=== PATIENT | male | born 1985 | race Caucasian/White ===

== ENCOUNTER 2017-02-06 03:10 | Emergency (ER) | payer SELFPAY ==
[2017-02-06] MEDS ORDERED: Ondansetron INJ* 2 MG/ML VIAL IV ONE (03:21)
[2017-02-06] MEDS ORDERED: NS 0.9% 1000 ML* 1,000 ML IV ONE (03:21)
[2017-02-06] MEDS ORDERED: Ketorolac INJ* 30 MG/ML 1 ML VIAL IV ONE (03:21)
[2017-02-06 05:57] VITALS: BP 106/80
--- NOTE | 2017-02-21 20:51 | ED ---
Rl Gimenez Matthew, scribed for Davian Galeana MD on 02/06/17 at 0333 . Headache - HPI Summary HPI Summary: A 31 y/o male presents to the ED with a migraine since 3 hours ago. The pain is rated 10/10 in severity. The patient states that he attempted to go back to sleep, but was unable to sleep from the pain. He has a Hx of migraines and normally takes acetaminophen for relief; however, his medication was "in the car , so he couldn't take any." - History Of Current Complaint Stated Complaint: SEVER MIGRAINE Hx Obtained From: Patient Onset/Duration: Sudden Onset, Started hours ago, Still Present Initially Headache Was: Initial Pain Scale(0-10)= - 10 Currently Pain Is: Current Pain Scale(0-10)= - 10 Timing: Constant Character: Migraine Associated Signs And Symptoms: Negative - Allergies/Home Medications Allergies/Adverse Reactions: Allergies Allergy/AdvReac Type Severity Reaction Status Date / Time Penicillins Allergy Intermediate Swelling Verified 02/06/17 03:19 Aspirin AdvReac Intermediate See Comment Verified 02/06/17 03:19 Home Medications: Home Medications NK [No Home Medications Reported] 02/06/17 [History Confirmed 02/06/17] PMH/Surg Hx/FS Hx/Imm Hx Endocrine/Hematology History: Denies: Hx Diabetes, Hx Thyroid Disease Cardiovascular History: Denies: Hx Hypertension, Hx Pacemaker/ICD Respiratory History: Reports: Hx Asthma Denies: Hx Chronic Obstructive Pulmonary Disease (COPD) GI History: Denies: Hx Ulcer Sensory History: Denies: Hx Hearing Aid Psychiatric History: Denies: Hx Panic Disorder - Surgical History Surgery Procedure, Year, and Place: APPENDECTOMY, RIGHT ARM, BILATERAL KNEES, HERNIA REPAIR Infectious Disease History: Denies: Hx Hepatitis, Hx Human Immunodeficiency Virus (HIV), Traveled Outside the [place] in Last 30 Days - Family History Known Family History: Positive: Cardiac Disease, Diabetes - Social History Alcohol Use: None Hx Substance Use: No Substance Use Type: Reports: None Hx Tobacco Use: Yes Smoking Status (MU): Heavy Every Day Tobacco Smoker Amount Used/How Often: ~1/2 ppd Review of Systems Constitutional: Negative Eyes: Negative ENT: Negative Cardiovascular: Negative Respiratory: Negative Gastrointestinal: Negative Genitourinary: Negative Musculoskeletal: Negative Skin: Negative Positive: Headache Psychological: Normal All Other Systems Reviewed And Are Negative: Yes Physical Exam Triage Information Reviewed: Yes Vital Signs On Initial Exam: Initial Vitals Temp Pulse Resp BP Pulse Ox 99.5 F 86 18 108/81 98 02/06/17 03:23 02/06/17 03:23 02/06/17 03:23 02/06/17 03:23 02/06/17 03:23 Vital Signs Reviewed: Yes Appearance: Positive: Well-Appearing, No Pain Distress Skin: Positive: Warm Head/Face: Positive: Normal Head/Face Inspection Eyes: Positive: EOMI, OFELIA, Conjunctiva Clear ENT: Positive: Hearing grossly normal Neck: Positive: Supple, Nontender Respiratory/Lung Sounds: Positive: Clear to Auscultation, Breath Sounds Present Cardiovascular: Positive: RRR Abdomen Description: Positive: Nontender, Soft Musculoskeletal: Positive: Strength/ROM Intact Neurological: Positive: Sensory/Motor Intact, Alert, Oriented to Person Place, Time, CN Intact II-III, Normal Gait Psychiatric: Positive: Anxious Diagnostics - Vital Signs Vital Signs Temp Pulse Resp BP Pulse Ox 02/06/17 05:56 98 F 84 18 106/80 02/06/17 03:23 99.5 F 86 18 108/81 98 - Laboratory Lab Statement: Any lab studies that have been ordered have been reviewed, and results considered in the medical decision making process. Re-Evaluation - Re-Evaluation First Eval Change: Improved Headache Course/Dx - Course Assessment/Plan: A 31 y/o male presents to the ED with a migraine since 3 hours ago. The pain is rated 10/10 in severity. The patient states that he attempted to go back to sleep, but was unable to sleep from the pain. He has a Hx of migraines and normally takes acetaminophen for relief; however, his medication was "in the car, so he couldn't take any." In the ED course, the patient was given IV fluids, Toradol, and Zofran. The patient did well in the ED and will be discharged home with PCP follow-up. - Diagnoses Provider Diagnoses: Migraine Discharge - Discharge Plan Condition: Stable Disposition: HOME Patient Education Materials: Migraine Headache (ED) Referrals: Missael Gunter MD [Primary Care Provider] - Additional Instructions: Please follow-up with your primary care physician in 2 days. The documentation as recorded by the Rl cota Matthew accurately reflects the service I personally performed and the decisions made by me, Davian Galeana MD.
== END 2017-02-06 05:56 | disposition home or self-care (01) ==
LOC: ED 03:10
DX: G43.909 Migraine, unspecified, not intractable, without status migrainosus (principal); F17.210 Nicotine dependence, cigarettes, uncomplicated; Z88.0 Allergy status to penicillin; Z88.6 Allergy status to analgesic agent
CPT/HCPCS: 96360; 96374; 96375; 99282; J1885; J2405

== ENCOUNTER 2017-06-14 19:53 | Emergency (ER) | payer SELFPAY ==
[2017-06-14] MEDS ORDERED: Ketorolac INJ* 30 MG/ML 1 ML VIAL IV PUSH ONE (21:58)
--- NOTE | 2017-06-14 22:52 | ED ---
Arthur Gimenez Rebecca, scribed for Davian Galeana MD on 06/14/17 at 2158 . HPI Chest Pain - HPI Summary HPI Summary: Pt is a 32 y/o M who presents to ED c/o CP and back pain. Sx began yesterday at 1400 as back pain. Upon waking up at 1130 this morning, pain was in the chest and "wrapped around" to the back. 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 Pain is characterized as sharp and severe, currently ranked 9/10. Sx aggravated by deep breaths, laying down and movement. Treated pain with one dose of Tylenol at 1130 this morning. Pt is concerned about a rib fx. - History of Current Complaint Chief Complaint: EDChestPainROMI Time Seen by Provider: 06/14/17 21:50 Hx Obtained From: Patient Onset/Duration: Still Present Time of Onset: 11:30 - Woke up with pain in the chest, back pain at 1400 yesterday Current Severity: Severe Pain Intensity: 9 Pain Scale Used: 0-10 Numeric Chest Pain Radiates: Yes Chest Pain Radiates To:: Back Character: Sharp/Stabbing Aggravating Factor(s): Movement, Deep Breaths, Other: - Laying down Alleviating Factor(s): Nothing Associated Signs and Symptoms: Positive: Back Pain - Allergy/Home Medications Allergies/Adverse Reactions: Allergies Allergy/AdvReac Type Severity Reaction Status Date / Time Penicillins Allergy Intermediate Swelling Verified 06/14/17 21:23 Aspirin AdvReac Intermediate See Comment Verified 06/14/17 21:23 PMH/Surg Hx/FS Hx/Imm Hx Endocrine/Hematology History: Denies: Hx Diabetes, Hx Thyroid Disease Cardiovascular History: Denies: Hx Hypertension, Hx Pacemaker/ICD Respiratory History: Reports: Hx Asthma Denies: Hx Chronic Obstructive Pulmonary Disease (COPD) GI History: Denies: Hx Ulcer Sensory History: Denies: Hx Hearing Aid Psychiatric History: Denies: Hx Panic Disorder - Surgical History Surgery Procedure, Year, and Place: APPENDECTOMY, RIGHT ARM, BILATERAL KNEES, HERNIA REPAIR - Immunization History Date of Tetanus Vaccine: unk Date of Influenza Vaccine: none Infectious Disease History: No Infectious Disease History: Denies: Hx Hepatitis, Hx Human Immunodeficiency Virus (HIV), Traveled Outside the [place] in Last 30 Days - Family History Known Family History: Positive: Cardiac Disease, Diabetes - Social History Alcohol Use: Rare Hx Substance Use: No Substance Use Type: Reports: None Hx Tobacco Use: Yes Smoking Status (MU): Heavy Every Day Tobacco Smoker Amount Used/How Often: ~1/2 ppd Review of Systems Positive: Chest Pain Positive: Arthralgia - Back pain All Other Systems Reviewed And Are Negative: Yes Physical Exam Triage Information Reviewed: Yes Vital Signs On Initial Exam: Initial Vitals Temp Pulse Resp BP Pulse Ox 98.9 F 77 20 122/86 100 06/14/17 19:58 06/14/17 19:58 06/14/17 19:58 06/14/17 19:58 06/14/17 19:58 Vital Signs Reviewed: Yes Appearance: Positive: Well-Appearing, Pain Distress - mild Skin: Positive: Warm Head/Face: Positive: Normal Head/Face Inspection Eyes: Positive: OFELIA ENT: Positive: Hearing grossly normal Neck: Positive: Supple Respiratory/Lung Sounds: Positive: Clear to Auscultation, Breath Sounds Present Cardiovascular: Positive: RRR. Negative: Murmur Abdomen Description: Positive: Nontender, Soft Bowel Sounds: Positive: Present Musculoskeletal: Positive: Strength/ROM Intact Neurological: Positive: Alert, Oriented to Person Place, Time Psychiatric: Positive: Affect/Mood Appropriate - [place] Coma Scale Coma Scale Total: 15 Diagnostics - Vital Signs Vital Signs Temp Pulse Resp BP Pulse Ox 06/14/17 21:19 99.1 F 60 12 114/75 98 06/14/17 21:06 99.2 F 67 18 108/75 99 06/14/17 19:58 98.9 F 77 20 122/86 100 - Laboratory Result Diagrams: 06/14/17 22:51 06/14/17 22:51 Lab Statement: Any lab studies that have been ordered have been reviewed, and results considered in the medical decision making process. - Radiology CXR w/ Ribs Xray Interpretation: No Acute Changes Radiology Interpretation Completed By: ED Physician Re-Evaluation - Re-Evaluation First Eval Change: Improved Chest Pain Course/Dx - Course Assessment/Plan: Pt is a 32 y/o M who presents to ED c/o CP and back pain. Sx began yesterday at 1400 as back pain. Upon waking up at 1130 this morning, pain was in the chest and "wrapped around" to the back. 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 Pain is characterized as sharp and severe, currently ranked 9/10. Sx aggravated by deep breaths, laying down and movement. Treated pain with one dose of Tylenol at 1130 this morning. Pt is concerned about rib fx. CXR w/ ribs is negative, as read by ED physician. Troponin of 0.00. In the ED course, the pt was given Toradol. Pt will be D/C to home with Dx of pleurisy with an Rx for Naproxen and a follow up with his PCP. He understands and agrees. Elevated BP noted and advised to f/u with PCP. - Diagnoses Provider Diagnoses: Pleurisy Discharge - Discharge Plan Condition: Stable Disposition: HOME Prescriptions: Naproxen [Naprosyn 500 mg] 500 mg PO BID #14 tab Patient Education Materials: Pleurisy (ED) Referrals: Missael Gunter MD [Primary Care Provider] - 3 Days The documentation as recorded by the Arthur cota Rebecca accurately reflects the service I personally performed and the decisions made by me, Davian Galeana MD.
[2017-06-14 23:11] LABS: Add Diff/Slide Review? Slide Review Added; Comments Flag Yes; Hematocrit 47 % (42-52); Hemoglobin 16.1 g/dl (14.0-18.0); Mean Corpuscular HGB Conc 35 g/dl (31-36); Mean Corpuscular Hemoglobin 29 pg (27-31); Mean Corpuscular Volume 83 fL (80-94); Mean Platelet Volume 9 um3 (7.4-10.4); Red Blood Count 5.66 10^6/ul (4.0-5.4); Red Cell Distribution Width 13 % (10.5-15); White Blood Count 6.2 10^3/ul (3.5-10.8)
[2017-06-14 23:22] LABS: Albumin 4.4 g/dL (3.2-5.2); Calcium 9.6 mg/dL (8.6-10.3); EGFR African American 110.7 (>60); EGFR Non-African American 86.1 (>60); Globulin 2.5 g/dL (2-4); Magnesium 2.1 mg/dL (1.9-2.7); Potassium 4.1 mmol/L (3.5-5.0); Total Bilirubin 0.6 mg/dL (0.2-1.0); Total Protein 6.9 g/dL (6.4-8.9)
[2017-06-15 00:17] VITALS: BP 122/60
--- NOTE | 2017-06-15 07:48 | RAD ---
INDICATION: Left rib pain. COMPARISON: Comparison is made with a prior chest x-ray study from June 18, 2010. TECHNIQUE: 4 views of the left ribs and a PA view of the chest was obtained. FINDINGS: No fracture or significant focal osseous abnormality is seen. The heart is within normal limits in size. The lungs are clear. There is no evidence for pneumothorax or pleural effusion. IMPRESSION: NO EVIDENCE FOR FRACTURE.
== END 2017-06-15 00:17 | disposition home or self-care (01) ==
LOC: ED 19:53
DX: R09.1 Pleurisy (principal); R07.9 Chest pain, unspecified; M54.9 Dorsalgia, unspecified; F17.210 Nicotine dependence, cigarettes, uncomplicated
CPT/HCPCS: 36415; 80053; 83605; 83735; 84484; 85025; 85379; 93005; 96374; 99282; J1885

== ENCOUNTER 2017-11-11 23:37 | Emergency (ER) | payer SELFPAY ==
[2017-11-12] MEDS ORDERED: Metoclopramide IV* 5 MG/ML 2 ML VIAL ONE (01:26)
[2017-11-12] MEDS ORDERED: Butalb/Acetamin/Caff TAB* 1 TAB PO ONE (01:27)
[2017-11-12] MEDS ORDERED: diPHENhydraMINE IV* 50 MG/ML 1 ml VIAL (BENADRYL) IM ONE (01:27)
[2017-11-12 03:20] VITALS: BP 124/70
--- NOTE | 2017-11-12 03:38 | ED ---
Ines Gimenez Thomas, scribed for Chris Barry on 11/12/17 at 0127 . Headache - HPI Summary HPI Summary: The patient is a 32 year old male presenting to the emergency department complaining of a migraine headache. The pain is constant and is rated 8/10. The pain is aggravated by bright lights and is alleviated by nothing. The patient has treated the symptoms with hydrocodone prior to arrival. The patient denies fevers. 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 And Symptoms: Other (Noted In Comments) - Photophobia; NEGATIVE : fever - Allergies/Home Medications Allergies/Adverse Reactions: Allergies Allergy/AdvReac Type Severity Reaction Status Date / Time Penicillins Allergy Intermediate Swelling Verified 06/14/17 21:23 Amoxicillin Allergy Anaphylatic Verified 11/12/17 00:05 Shock Aspirin AdvReac Intermediate See Comment Verified 06/14/17 21:23 PMH/Surg Hx/FS Hx/Imm Hx Endocrine/Hematology History: Denies: Hx Diabetes, Hx Thyroid Disease Cardiovascular History: Denies: Hx Hypertension, Hx Pacemaker/ICD Respiratory History: Reports: Hx Asthma Denies: Hx Chronic Obstructive Pulmonary Disease (COPD) GI History: Denies: Hx Ulcer Sensory History: Denies: Hx Hearing Aid Neurological History: Reports: Hx Migraine Psychiatric History: Denies: Hx Panic Disorder - Surgical History Surgery Procedure, Year, and Place: APPENDECTOMY, RIGHT ARM, BILATERAL KNEES, HERNIA REPAIR - Immunization History Date of Tetanus Vaccine: unk Date of Influenza Vaccine: none Infectious Disease History: No Infectious Disease History: Denies: Hx Hepatitis, Hx Human Immunodeficiency Virus (HIV), Traveled Outside the [place] in Last 30 Days - Family History Known Family History: Positive: Cardiac Disease, Diabetes - Social History Alcohol Use: Rare Hx Substance Use: No Substance Use Type: Reports: None Hx Tobacco Use: Yes Smoking Status (MU): Heavy Every Day Tobacco Smoker Amount Used/How Often: ~1/2 ppd Review of Systems Negative: Fever Positive: Photophobia Positive: Headache - migraine All Other Systems Reviewed And Are Negative: Yes Physical Exam - Summary Physical Exam Summary: Appearance: Well appearing, no pain distress Skin: warm, dry, reflects adequate perfusion Head/face: normal Eyes: EOMI, OFELIA ENT: normal Neck: supple, non-tender Respiratory: CTA, breath sounds present Cardiovascular: RRR, pulses symmetrical Abdomen: non-tender, soft Bowel: present Musculoskeletal: normal, strength/ROM intact Neuro: normal, sensory motor intact, A&Ox3 Triage Information Reviewed: Yes Vital Signs On Initial Exam: Initial Vitals Temp Pulse Resp BP Pulse Ox 99.1 F 70 14 116/65 96 11/12/17 00:04 11/12/17 00:04 11/12/17 00:04 11/12/17 00:04 11/12/17 00:04 Vital Signs Reviewed: Yes Diagnostics - Vital Signs Vital Signs Temp Pulse Resp BP Pulse Ox 11/12/17 00:04 99.1 F 70 14 116/65 96 - Laboratory Lab Statement: Any lab studies that have been ordered have been reviewed, and results considered in the medical decision making process. - CT CT Brain CT Interpretation: No Acute Changes - Normal Exam. Dr. Barry has reviewed this report. CT Interpretation Completed By: Radiologist Re-Evaluation - Re-Evaluation First Eval Re-Evaluation Time: 03:00 Change: Improved Comment: He feels better. Headache Course/Dx - Course Assessment/Plan: The patient is a 32 year old male presenting to the emergency department complaining of a migraine headache. In the ED course the patient was given Fioricet, Benadryl, and Reglan. CT Brain was negative. At re-evaluation at 03:00, he feels better. The patient is diagnosed with migraine headache. The patient is instructed to follow up with primary care. The patient is prescribed Fioricet. - Diagnoses Differential Diagnosis/HQI/PQRI: Migraine, Sinus Headache, Tension Headache Provider Diagnoses: Migraine headache Discharge - Discharge Plan Condition: Stable Disposition: HOME Prescriptions: Butalb/Acetamin/Caff TAB* [Fioricet TAB*] 1 tab PO Q6H PRN #15 tab MDD 3 PRN Reason: Pain Patient Education Materials: Migraine Headache (ED) Referrals: Missael Gunter MD [Primary Care Provider] - 3 Days Additional Instructions: Follow up with Dr. Gunter in three days. Return to the emergency department for any new or worsening symptoms. The documentation as recorded by the Ines cota Thomas accurately reflects the service I personally performed and the decisions made by , Chris Barry.
--- NOTE | 2017-11-12 08:12 | RAD ---
Indication: Headache. CT of the brain was performed without IV contrast. Ventricular structures are midline. No midline shift is noted. The extra-axial spaces are unremarkable. There is no evidence of intracranial mass or hemorrhage. No other high or low density lesions are identified. Mastoid air cells and paranasal sinuses are unremarkable. IMPRESSION: There is no evidence of intracranial mass or hemorrhage.
== END 2017-11-12 03:22 | disposition home or self-care (01) ==
LOC: ED 23:37
DX: G43.909 Migraine, unspecified, not intractable, without status migrainosus (principal); J45.909 Unspecified asthma, uncomplicated; Z88.6 Allergy status to analgesic agent; Z88.0 Allergy status to penicillin; F17.210 Nicotine dependence, cigarettes, uncomplicated
CPT/HCPCS: 70450; 96372; 99283; A9270-GY; J1200; J2765

== ENCOUNTER 2018-12-17 13:02 | Emergency (ER) | payer OTHER ==
--- NOTE | 2018-12-17 14:24 | ED ---
Skin Complaint - HPI Summary HPI Summary: Patient is a 33-year-old male presenting to the ED with right great toe pain 3 days. He states he dropped a piece of wood on the toe and was seen here in the ED. X-ray obtained which was negative. He returns today as there is a blood blister forming just proximal to the nailbed. He is concerned over the ear canal. Denies any other symptoms of this time. - History of Current Complaint Chief Complaint: EDExtremityLower Time Seen by Provider: 12/17/18 13:46 Stated Complaint: GENERAL Hx Obtained From: Patient Onset/Duration: Started Hours Ago Skin Exposure Onset/Duration: Hours Ago Timing: Constant Onset Severity: Moderate Current Severity: Moderate Pain Intensity: 5 Pain Scale Used: 0-10 Numeric Skin Location: Foot Aggravating Symptom(s): Nothing Alleviating Symptom(s): Nothing Associated Signs & Symptoms: Negative Related History: Trauma - Allergy/Home Medications Allergies/Adverse Reactions: Allergies Allergy/AdvReac Type Severity Reaction Status Date / Time amoxicillin Allergy Anaphylatic Verified 12/17/18 13:05 Shock aspirin Allergy See Comment Verified 12/17/18 13:05 Penicillins Allergy Anaphylatic Verified 12/17/18 13:05 Shock PMH/Surg Hx/FS Hx/Imm Hx Previously Healthy: Yes Endocrine/Hematology History: Denies: Hx Diabetes, Hx Thyroid Disease Cardiovascular History: Denies: Hx Hypertension, Hx Pacemaker/ICD Respiratory History: Reports: Hx Asthma Denies: Hx Chronic Obstructive Pulmonary Disease (COPD) GI History: Denies: Hx Ulcer History: Denies: Hx Dialysis Sensory History: Denies: Hx Eye Prosthesis, Hx Deafness, Hx Hearing Aid Opthamlomology History: Denies: Hx Eye Prosthesis Neurological History: Reports: Hx Migraine Psychiatric History: Denies: Hx Panic Disorder - Surgical History Surgery Procedure, Year, and Place: APPENDECTOMY, RIGHT ARM, BILATERAL KNEES, HERNIA REPAIR - Immunization History Date of Tetanus Vaccine: unk Date of Influenza Vaccine: none Hx Pertussis Vaccination: No Immunizations Up to Date: Yes Infectious Disease History: No Infectious Disease History: Denies: Hx Hepatitis, Hx Human Immunodeficiency Virus (HIV), Traveled Outside the [place] in Last 30 Days - Family History Known Family History: Positive: Cardiac Disease, Diabetes - Social History Occupation: Unemployed Lives: With Family Alcohol Use: Rare Hx Substance Use: No Substance Use Type: Reports: None Hx Tobacco Use: Yes Smoking Status (MU): Heavy Every Day Tobacco Smoker Amount Used/How Often: ~1/2 ppd Review of Systems Constitutional: Negative Negative: Fever, Chills, Fatigue, Skin Diaphoresis Negative: Palpitations, Chest Pain Negative: Shortness Of Breath, Cough Genitourinary: Negative Positive: no symptoms reported, see HPI Positive: Arthralgia, Myalgia Positive: Other - right great toe eccymosis All Other Systems Reviewed And Are Negative: Yes Physical Exam Vital Signs On Initial Exam: Initial Vitals Temp Pulse Resp BP Pulse Ox 99.3 F 79 15 125/74 97 12/17/18 13:04 12/17/18 13:04 12/17/18 13:04 12/17/18 13:04 12/17/18 13:04 Vital Signs Reviewed: Yes Appearance: Positive: Well-Appearing, Well-Nourished Skin: Positive: Skin Color Reflects Adequate Perfusion, Other - right great toe pain and ecchymosis Neck: Positive: Supple, No Lymphadenopathy Respiratory/Lung Sounds: Positive: Clear to Auscultation Cardiovascular: Positive: RRR, Pulses are Symmetrical in both Upper and Lower Extremities Musculoskeletal: Positive: Strength/ROM Intact Neurological: Positive: Speech Normal Psychiatric: Positive: Affect/Mood Appropriate Diagnostics - Vital Signs Vital Signs Temp Pulse Resp BP Pulse Ox 12/17/18 13:04 99.3 F 79 15 125/74 97 - Laboratory Lab Statement: Any lab studies that have been ordered have been reviewed, and results considered in the medical decision making process. Course/Dx - Course Course Of Treatment: During the patient's course of treatment, the patient's evaluated for right great toe pain. He is endorsing some tingling to the medial side of the right great toe with a formed blood blister which is small measuring 0.5 x 0.5. Nailbed is not involved. He states he has difficulty walking due to the pain to the medial side of the toe and would like a note for work. He is given a note for work and a postop shoe is given. - Diagnoses Provider Diagnoses: Blood blister Discharge - Sign-Out/Discharge Documenting (check all that apply): Patient Departure Patient Received Moderate/Deep Sedation with Procedure: No - Discharge Plan Condition: Stable Disposition: HOME Forms: *Work Release Referrals: Missael Gunter MD [Primary Care Provider] - Additional Instructions: Wear post op shoe as needed for pain Continue antibiotics off work x 3 days - Billing Disposition and Condition Condition: STABLE Disposition: Home
[2018-12-17 14:43] VITALS: BP 121/73
== END 2018-12-17 14:42 | disposition home or self-care (01) ==
LOC: ED 13:02
DX: S90.421D Blister (nonthermal), right great toe, subsequent encounter (principal); W20.8XXD Other cause of strike by thrown, projected or falling object, subsequent encounter; Z88.6 Allergy status to analgesic agent; Z88.0 Allergy status to penicillin
CPT/HCPCS: 99281

== ENCOUNTER 2019-01-04 06:25 | Emergency (ER) | payer SELFPAY ==
[2019-01-04] MEDS ORDERED: Ondansetron INJ* 2 MG/ML VIAL IV ONE (06:54)
[2019-01-04] MEDS ORDERED: Famotidine IV* 10 MG/ML 2 ML (20 mg) IV SLOW PU ONE (06:54)
[2019-01-04] MEDS ORDERED: NS 0.9% 1000 ML** 1,000 ML IV ONE (07:00)
--- NOTE | 2019-01-04 07:00 | ED ---
Nausea/Vomiting/Diarrhea HPI - HPI Summary HPI Summary: Patient is a 33-year-old male who presents to the ED with acute onset of nausea and vomiting which occurred just prior to arrival. He states he feels better on arrival. He was concerned that he had hematemesis. He is endorsing this hematemesis as a small amount. No history of gastric ulcers, GERD. Denies any known sick contacts. Denies any diarrhea or constipation. He does endorse diffuse abdominal pain which began after 2 episodes of vomiting. He called the ambulance at this time. He has not had another episode of emesis since he arrived by ambulance. Denies any fevers, sweats, chills. Patient is a smoker, however otherwise healthy. - History of Current Complaint Chief Complaint: EDNauseaVomitDiarrh Stated Complaint: VOMITING, DIARRHEA, ABD PAIN Time Seen by Provider: 01/04/19 06:27 Hx Obtained From: Patient Onset/Duration: Sudden Onset Timing: Constant Severity Initially: Mild Severity Currently: Mild Pain Intensity: 2 Pain Scale Used: 0-10 Numeric Character: Cramping Aggravating Factor(s): Nothing Alleviating Factor(s): Nothing Vomiting Frequency: Every 15-60 minutes Nausea/Vomiting Duration: 0-12 hours Diarrhea Presence: No - Risk Factors Influenza Risk Factors: Negative Surgical Obstruction Risk Factor(s): Negative - Allergies/Home Medications Allergies/Adverse Reactions: Allergies Allergy/AdvReac Type Severity Reaction Status Date / Time amoxicillin Allergy Anaphylatic Verified 12/17/18 13:05 Shock aspirin Allergy See Comment Verified 12/17/18 13:05 Penicillins Allergy Anaphylatic Verified 12/17/18 13:05 Shock PMH/Surg Hx/FS Hx/Imm Hx Previously Healthy: Yes Endocrine/Hematology History: Denies: Hx Diabetes, Hx Thyroid Disease Cardiovascular History: Denies: Hx Hypertension, Hx Pacemaker/ICD Respiratory History: Reports: Hx Asthma Denies: Hx Chronic Obstructive Pulmonary Disease (COPD) GI History: Denies: Hx Ulcer History: Denies: Hx Dialysis Sensory History: Denies: Hx Eye Prosthesis, Hx Deafness, Hx Hearing Aid Opthamlomology History: Denies: Hx Eye Prosthesis Neurological History: Reports: Hx Migraine Psychiatric History: Denies: Hx Panic Disorder - Surgical History Surgery Procedure, Year, and Place: APPENDECTOMY, RIGHT ARM, BILATERAL KNEES, HERNIA REPAIR - Immunization History Date of Tetanus Vaccine: unk Date of Influenza Vaccine: none Hx Pertussis Vaccination: No Immunizations Up to Date: Yes Infectious Disease History: No Infectious Disease History: Denies: Hx Hepatitis, Hx Human Immunodeficiency Virus (HIV), Traveled Outside the [place] in Last 30 Days - Family History Known Family History: Positive: Cardiac Disease, Diabetes - Social History Occupation: Employed Full-time Lives: With Family Alcohol Use: Rare Hx Substance Use: No Substance Use Type: Reports: None Hx Tobacco Use: Yes Smoking Status (MU): Heavy Every Day Tobacco Smoker Amount Used/How Often: ~1/2 ppd Review of Systems Constitutional: Negative Negative: Fever, Chills, Fatigue, Skin Diaphoresis Negative: Palpitations, Chest Pain Negative: Cough Positive: Abdominal Pain, Vomiting, Nausea. Negative: Diarrhea Genitourinary: Negative Positive: no symptoms reported, see HPI Negative: Arthralgia, Myalgia Skin: Negative Negative: Headache, Weakness, Paresthesia All Other Systems Reviewed And Are Negative: Yes Physical Exam Triage Information Reviewed: Yes Vital Signs On Initial Exam: Initial Vitals Temp Pulse Resp BP Pulse Ox 97.6 F 85 18 123/78 96 01/04/19 06:30 01/04/19 06:30 01/04/19 06:30 01/04/19 06:30 01/04/19 06:30 Vital Signs Reviewed: Yes Appearance: Positive: Well-Appearing, Well-Nourished Skin: Positive: Warm, Skin Color Reflects Adequate Perfusion Head/Face: Positive: Normal Head/Face Inspection Eyes: Positive: EOMI, OFELIA, Conjunctiva Clear Neck: Positive: Supple, No Lymphadenopathy Respiratory/Lung Sounds: Positive: Clear to Auscultation, Breath Sounds Present Cardiovascular: Positive: RRR, Pulses are Symmetrical in both Upper and Lower Extremities Abdomen Description: Positive: Other: - tenderness throughout Bowel Sounds: Positive: Present Musculoskeletal: Positive: Normal Neurological: Positive: Sensory/Motor Intact, Alert, Oriented to Person Place, Time Psychiatric: Positive: Normal, Affect/Mood Appropriate AVPU Assessment: Alert Diagnostics - Vital Signs Vital Signs Temp Pulse Resp BP Pulse Ox 01/04/19 06:30 97.6 F 85 18 123/78 96 - Laboratory Result Diagrams: 01/04/19 07:08 01/04/19 07:08 Lab Statement: Any lab studies that have been ordered have been reviewed, and results considered in the medical decision making process. Naus/Vom/Diarrhea Course/Dx - Course Course Of Treatment: During the course of treatment, the patient is evaluated for nausea and vomiting. He is given famotidine IV, normal saline and Zofran. Labs obtained which are WNL except for high hemoglobin count. Patient is a smoker and states he does not drink water. No hx of heart failure, kidney failure or COPD. Patient feels improved following NS and zofran. He will be DC' d at this time with viral syndrome and nausea and vomiting. - Differential Dx/Diagnosis Provider Diagnosis: Nausea & vomiting Is Visit Related: No Condition At Discharge: Stable Discharge - Sign-Out/Discharge Documenting (check all that apply): Patient Departure Patient Received Moderate/Deep Sedation with Procedure: No - Discharge Plan Condition: Stable Disposition: HOME Prescriptions: Ondansetron ODT TAB* [Zofran 4 MG Odt TAB*] 4 mg PO Q6H PRN #12 tab.odt MDD 4 PRN Reason: Nausea Patient Education Materials: Acute Nausea and Vomiting (ED) Referrals: Missael Gunter MD [Primary Care Provider] - Additional Instructions: Zofran up to every 4 hours as needed for nausea Drink plenty of water Fate, crackers, chicken noodle soup will help with your symptoms - Billing Disposition and Condition Condition: STABLE Disposition: Home
[2019-01-04 07:22] LABS: ABS Basophils 0 10^3/ul (0-0.2); ABS Eosinophils 0 10^3/ul (0-0.6); ABS Lymphocytes 0.5 10^3/ul (1.0-4.8); ABS Monocytes 0.5 10^3/ul (0-0.8); ABS Neutrophils 10.2 10^3/ul (1.5-7.7); ABS Nucleated RBC 0 10^3/ul; Eosinophil % 0.4 %; Hematocrit 53 % (36-46); Hemoglobin 18.2 g/dL (14.0-18.0); Lymphocyte % 4.4 %; Mean Corpuscular HGB Conc 34 g/dL (31-36); Mean Corpuscular Hemoglobin 29 pg (27-31); Mean Corpuscular Volume 83 fL (80-94); Mean Platelet Volume 9.4 fL (7.4-10.4); Nucleated Red Blood Cells % 0.1; Platelet Count 119 10^3/uL (150-450); Red Blood Count 6.38 10^6 /uL (4.18-5.48); Red Cell Distribution Width 13 % (10.5-15); White Blood Count 11.2 10^3/uL (3.5-10.8)
[2019-01-04 07:38] LABS: ALT 19 U/L (7-52); AST 23 U/L (13-39); Albumin 5.1 g/dL (3.2-5.2); Alkaline Phosphatase 46 U/L (34-104); Anion Gap 9 mmol/L (2-11); BUN/Creatinine Ratio 17.4 (8-20); Blood Urea Nitrogen 16 mg/dL (6-24); C Reactive Protein < 1.00 mg/L (<8.01); CO2 Carbon Dioxide 20 mmol/L (22-32); Calcium 9.9 mg/dL (8.6-10.3); Chloride 107 mmol/L (101-111); EGFR Non-African American 94.2 (>60); Globulin 2.6 g/dL (2-4); Glucose 106 mg/dL (70-100); Potassium 4.1 mmol/L (3.5-5.0); Sodium 136 mmol/L (135-145); Total Protein 7.7 g/dL (6.4-8.9)
[2019-01-04 08:47] VITALS: BP 115/76
[2019-01-04 09:35] LABS: Urine Appearance Cloudy; Urine Bacteria Absent (Absent); Urine Bilirubin Negative (Negative); Urine Blood 1+ (Negative); Urine Color Amber; Urine Glucose Negative (Negative); Urine Ketones Negative (Negative); Urine Nitrite Negative (Negative); Urine Protein 1+(30 mg/dL) (Negative); Urine Red Blood Cell Absent (Absent); Urine Specific Gravity 1.026 (1.010-1.030); Urine Urobilinogen Negative (Negative); Urine White Blood Cell Absent (Absent)
== END 2019-01-04 08:46 | disposition home or self-care (01) ==
LOC: ED 06:25
DX: R11.2 Nausea with vomiting, unspecified (principal); R10.84 Generalized abdominal pain; Z88.6 Allergy status to analgesic agent; Z88.0 Allergy status to penicillin; F17.200 Nicotine dependence, unspecified, uncomplicated
CPT/HCPCS: 36415; 80053; 81003; 81015; 83605; 83690; 83735; 85025; 86140; 96361; 96374; 96375; 99282; J2405

== ENCOUNTER 2019-03-15 17:51 | Emergency (ER) | payer OTHER ==
[2019-03-15] MEDS ORDERED: Tetan/Diph/Pertus SYR(Tdap)* 0.5 ML SYR(BOOSTRIX) use SYR IM ONE (18:14)
--- NOTE | 2019-03-15 18:14 | ED ---
Upper Extremity Pain - HPI Summary HPI Summary: 33 yo male presents to [facility] ED with right hand injury. He tells me that yesterday he was at work handling wood and a nail was sticking out. The nail punctured his right hand web spacing between 4th and 5th digit. Pulled it out and continued working - had minimal pain. Today has developed some redness and increased pain that concerned him. He is right handed. Has not taken anything OTC for his discomfort. Denies fever, numbness, or tingling. - History of Current Complaint Chief Complaint: EDExtremityUpper Stated Complaint: RIGHT HAND INJURY PER PT Time Seen by Provider: 03/15/19 18:14 Hx Obtained From: Patient Timing: Constant Severity Initially: Mild Severity Currently: Moderate Pain Location: Hand - Allergies/Home Medications Allergies/Adverse Reactions: Allergies Allergy/AdvReac Type Severity Reaction Status Date / Time amoxicillin Allergy Anaphylatic Verified 03/15/19 18:00 Shock aspirin Allergy See Comment Verified 03/15/19 18:00 Penicillins Allergy Anaphylatic Verified 03/15/19 18:00 Shock PMH/Surg Hx/FS Hx/Imm Hx Endocrine/Hematology History: Denies: Hx Diabetes, Hx Thyroid Disease Cardiovascular History: Denies: Hx Hypertension, Hx Pacemaker/ICD Respiratory History: Reports: Hx Asthma Denies: Hx Chronic Obstructive Pulmonary Disease (COPD) GI History: Denies: Hx Ulcer History: Denies: Hx Dialysis Sensory History: Denies: Hx Eye Prosthesis, Hx Deafness, Hx Hearing Aid Opthamlomology History: Denies: Hx Eye Prosthesis Neurological History: Reports: Hx Migraine Psychiatric History: Denies: Hx Panic Disorder - Surgical History Surgery Procedure, Year, and Place: APPENDECTOMY, RIGHT ARM, BILATERAL KNEES, HERNIA REPAIR - Immunization History Date of Tetanus Vaccine: unk Date of Influenza Vaccine: none Infectious Disease History: No Infectious Disease History: Denies: Hx Hepatitis, Hx Human Immunodeficiency Virus (HIV), Traveled Outside the [place] in Last 30 Days - Family History Known Family History: Positive: Cardiac Disease, Diabetes - Social History Occupation: Employed Full-time Lives: With Family Alcohol Use: Rare Hx Substance Use: No Substance Use Type: Reports: None Hx Tobacco Use: Yes Smoking Status (MU): Heavy Every Day Tobacco Smoker Amount Used/How Often: ~1/2 ppd Review of Systems Constitutional: Negative Cardiovascular: Negative Respiratory: Negative Gastrointestinal: Negative Musculoskeletal: Other - Right hand pain Skin: Other - Right hand redness and swelling Neurological: Negative Psychological: Normal All Other Systems Reviewed And Are Negative: Yes Physical Exam - Summary Physical Exam Summary: GENERAL: NAD. WDWN. No pain distress. SKIN: RIGHT HAND: Dorsal aspect near 4th and 5th MCP with mild erythema and mild edema. Mild TTP here. No fluctuance or abscess appreciated. No streaking, ecchymosis, or FB appreciated. CHEST: No accessory muscle use. Breathing comfortably and in no distress. CV: Pulses intact radial and ulnar. Cap refill <2seconds MSK: RIGHT HAND: All digits FROM. Strength 5/5 including strategic buyer strength. Good strategic buyer strength NEURO: Alert. Sensations intact hand and all fingers. PSYCH: Age appropriate behavior. Triage Information Reviewed: Yes Vital Signs On Initial Exam: Initial Vitals Temp Pulse Resp BP Pulse Ox 98.8 F 80 16 120/64 97 03/15/19 17:56 03/15/19 17:56 03/15/19 17:56 03/15/19 17:56 03/15/19 17:56 Vital Signs Reviewed: Yes Diagnostics - Vital Signs Vital Signs Temp Pulse Resp BP Pulse Ox 03/15/19 17:56 98.8 F 80 16 120/64 97 - Laboratory Lab Statement: Any lab studies that have been ordered have been reviewed, and results considered in the medical decision making process. Course/Dx - Course Course Of Treatment: XR to assess for FB: No radiologist reading after 1800, therefore wet read by myself is negative for FB. Pt's tdap was updated today. Will start him on clindamycin for puncture wound and have him f/u for a wound check with his PCP or Orthopedics in 2-3 days. If pain worsens or if her develops a fever to return to the ED. - Diagnoses Provider Diagnoses: Puncture wound of right hand Discharge - Sign-Out/Discharge Documenting (check all that apply): Patient Departure Patient Received Moderate/Deep Sedation with Procedure: No - Discharge Plan Condition: Stable Disposition: HOME Prescriptions: Clindamycin HCl 300 mg PO TID #21 capsule Patient Education Materials: Puncture Wound (DC) Forms: *Work Release Referrals: Missael Gunter MD [Primary Care Provider] - Mary Castelan MD [Medical Doctor] - 2 Days Additional Instructions: If you develop a fever, shortness of breath, chest pain, new or worsening symptoms - please call your PCP or go to the ED immediately. Take your antibiotics as directed Please call Orthopedics on Sunday to schedule a follow up appointment for early next week for a recheck of your hand. If your hand redness, swelling, or pain worsens or if you develop a fever - please return to the ED - Billing Disposition and Condition Condition: STABLE Disposition: Home
[2019-03-15] MEDS ORDERED: Clindamycin CAP* 150 MG PO ONE (19:15)
[2019-03-15 19:31] VITALS: BP 117/61
== END 2019-03-15 19:43 | disposition home or self-care (01) ==
LOC: ED 17:51
DX: S61.431A Puncture wound without foreign body of right hand, initial encounter (principal); W26.8XXA Contact with other sharp object(s), not elsewhere classified, initial encounter; Y99.0 Civilian activity done for income or pay; J45.909 Unspecified asthma, uncomplicated; F17.210 Nicotine dependence, cigarettes, uncomplicated; Z88.3 Allergy status to other anti-infective agents; Z88.0 Allergy status to penicillin; Z88.6 Allergy status to analgesic agent
CPT/HCPCS: 90471; 90715; 99282; A9270-GY

== ENCOUNTER 2019-04-17 21:50 | Emergency (ER) | payer SELFPAY ==
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
[2019-04-18 00:36] VITALS: BP 123/70
== END 2019-04-18 00:35 | disposition home or self-care (01) ==
LOC: ED 21:50
DX: M54.5 Low back pain (principal); Z88.0 Allergy status to penicillin; F17.210 Nicotine dependence, cigarettes, uncomplicated
CPT/HCPCS: 99282

== ENCOUNTER 2019-04-20 21:07 | Emergency (ER) | payer SELFPAY ==
[2019-04-20] MEDS ORDERED: Ketorolac INJ* 60 MG/2 ML VIAL IM ONE (22:15)
[2019-04-20] MEDS ORDERED: Diazepam TAB(*) 5 MG PO ONE (22:15)
[2019-04-20 22:30] LABS: Hematocrit 42 % (42-52); Hemoglobin 14.8 g/dL (14.0-18.0); Mean Corpuscular HGB Conc 35 g/dL (31-36); Mean Corpuscular Hemoglobin 29 pg (27-31); Mean Corpuscular Volume 83 fL (80-94); Mean Platelet Volume 9.7 fL (7.4-10.4); Platelet Count 86 10^3/uL (150-450); Red Blood Count 5.05 10^6 /uL (4.18-5.48); Red Cell Distribution Width 14 % (10-15); White Blood Count 5.5 10^3/uL (3.5-10.8)
[2019-04-20 22:40] LABS: ALT 13 U/L (7-52); Albumin/Globulin Ratio 1.9 (1-3); Alkaline Phosphatase 50 U/L (34-104); BUN/Creatinine Ratio 19.1 (8-20); Blood Urea Nitrogen 17 mg/dL (6-24); C Reactive Protein < 1.00 mg/L (<8.01); CO2 Carbon Dioxide 24 mmol/L (22-32); Calcium 9.2 mg/dL (8.6-10.3); Chloride 107 mmol/L (101-111); EGFR African American 117.7 (>60); EGFR Non-African American 97.3 (>60); Globulin 2.1 g/dL (2-4); Glucose 117 mg/dL (70-100); Sodium 137 mmol/L (135-145); Total Protein 6.1 g/dL (6.4-8.9)
[2019-04-20 22:41] LABS: Anion Gap 6 mmol/L (2-11)
[2019-04-20 23:04] LABS: Urine Appearance Clear; Urine Bilirubin Negative (Negative); Urine Blood Negative (Negative); Urine Color Yellow; Urine Glucose Negative (Negative); Urine Ketones Negative (Negative); Urine Nitrite Negative (Negative); Urine Protein Negative (Negative); Urine Specific Gravity 1.018 (1.010-1.030); Urine Urobilinogen Negative (Negative)
--- NOTE | 2019-04-20 23:30 | ED ---
Back Pain - HPI Summary HPI Summary: 34-year-old male presents with back pain for the past couple days. he denies any injury. He states that today he may have passed out and fell onto his back. Family found him on the floor. family states he was slow to respond. No seizure-like activity. He denies any chest pain or shortness of breath. Denies any headache. No nausea vomiting. He states he does not really remember this. No bowel pain. No urinary symptoms. No fevers. No loss of bowel or bladder. No saddle anesthesias. Has decreased sensations in legs at baseline. has been having more difficulty ambulating. was given Percocet a couple days ago for back pain which has not working. - History of Current Complaint Chief Complaint: EDFall Stated Complaint: LOWERBACK PAIN PER EMS Time Seen by Provider: 04/20/19 21:31 Pain Intensity: 10 - Allergies/Home Medications Allergies/Adverse Reactions: Allergies Allergy/AdvReac Type Severity Reaction Status Date / Time amoxicillin Allergy Anaphylatic Verified 03/15/19 18:00 Shock aspirin Allergy See Comment Verified 03/15/19 18:00 Penicillins Allergy Anaphylatic Verified 03/15/19 18:00 Shock PMH/Surg Hx/FS Hx/Imm Hx Endocrine/Hematology History: Denies: Hx Diabetes, Hx Thyroid Disease Cardiovascular History: Denies: Hx Hypertension, Hx Pacemaker/ICD Respiratory History: Reports: Hx Asthma Denies: Hx Chronic Obstructive Pulmonary Disease (COPD) GI History: Denies: Hx Ulcer History: Denies: Hx Dialysis Sensory History: Denies: Hx Eye Prosthesis, Hx Deafness, Hx Hearing Aid Opthamlomology History: Denies: Hx Eye Prosthesis Neurological History: Reports: Hx Migraine Psychiatric History: Denies: Hx Panic Disorder - Surgical History Surgery Procedure, Year, and Place: APPENDECTOMY, RIGHT ARM, BILATERAL KNEES, HERNIA REPAIR - Immunization History Date of Tetanus Vaccine: unk Date of Influenza Vaccine: none Infectious Disease History: No Infectious Disease History: Denies: Hx Hepatitis, Hx Human Immunodeficiency Virus (HIV), Traveled Outside the [place] in Last 30 Days - Family History Known Family History: Positive: Cardiac Disease, Diabetes - Social History Alcohol Use: Rare Hx Substance Use: No Substance Use Type: Reports: None Hx Tobacco Use: Yes Smoking Status (MU): Heavy Every Day Tobacco Smoker Amount Used/How Often: ~1/2 ppd Review of Systems Negative: Fever Negative: Chest Pain Negative: Shortness Of Breath Positive: Myalgia - back pain Positive: Syncope - possible All Other Systems Reviewed And Are Negative: Yes Physical Exam Triage Information Reviewed: Yes Vital Signs On Initial Exam: Initial Vitals Temp Pulse Resp BP Pulse Ox 97.6 F 70 18 114/56 96 04/20/19 21:10 04/20/19 21:10 04/20/19 21:10 04/20/19 21:10 04/20/19 21:10 Vital Signs Reviewed: Yes Appearance: Positive: Well-Appearing Skin: Positive: Warm, Dry Head/Face: Positive: Normal Head/Face Inspection Eyes: Positive: Normal, Conjunctiva Clear ENT: Positive: Pharynx normal Respiratory/Lung Sounds: Positive: Clear to Auscultation, Breath Sounds Present Cardiovascular: Positive: Normal, RRR Abdomen Description: Positive: Nontender, Soft Bowel Sounds: Positive: Present Musculoskeletal: Positive: Other - tenderness lower back, pos SLR, good pulses, decreased sensation at baseline Neurological: Positive: Normal Diagnostics - Vital Signs Vital Signs Temp Pulse Resp BP Pulse Ox 04/20/19 22:32 20 04/20/19 21:10 97.6 F 70 18 114/56 96 - Laboratory Lab Results: Lab Results 04/20/19 04/20/19 04/20/19 Range/Units 22:17 22:17 22:17 WBC 5.5 (3.5-10.8) 10^3/uL RBC 5.05 (4.18-5.48) 10^6 /uL Hgb 14.8 (14.0-18.0) g/dL Hct 42 (42-52) % MCV 83 (80-94) fL MCH 29 (27-31) pg MCHC 35 (31-36) g/dL RDW 14 (10-15) % Plt Count 86 L (150-450) 10^3/uL MPV 9.7 (7.4-10.4) fL Neut % (Auto) Pending Lymph % (Auto) Pending Steele % (Auto) Pending Eos % (Auto) Pending Baso % (Auto) Pending Absolute Neuts (auto) Pending Absolute Lymphs (auto) Pending Absolute Monos (auto) Pending Absolute Eos (auto) Pending Absolute Basos (auto) Pending Absolute Nucleated RBC Pending Nucleated RBC % Pending Sodium 137 (135-145) mmol/L Potassium TNP Chloride 107 (101-111) mmol/L Carbon Dioxide 24 (22-32) mmol/L Anion Gap 6 (2-11) mmol/L BUN 17 (6-24) mg/dL Creatinine 0.89 (0.67-1.17) mg/dL Est GFR ( Amer) 117.7 (>60) Est GFR (Non-Af Amer) 97.3 (>60) BUN/Creatinine Ratio 19.1 (8-20) Glucose 117 H (70-100) mg/dL Lactic Acid 0.9 (0.5-2.0) mmol/L Calcium 9.2 (8.6-10.3) mg/dL Magnesium TNP Total Bilirubin 0.30 (0.2-1.0) mg/dL AST TNP ALT 13 (7-52) U/L Alkaline Phosphatase 50 (34-104) U/L Troponin I 0.00 (<0.04) ng/mL C-Reactive Protein < 1.00 (<8.01) mg/L Total Protein 6.1 L (6.4-8.9) g/dL Albumin 4.0 (3.2-5.2) g/dL Globulin 2.1 (2-4) g/dL Albumin/Globulin Ratio 1.9 (1-3) Urine Color Urine Appearance Urine pH (5-9) Ur Specific Hilger (1.010-1.030) Urine Protein (Negative) Urine Ketones (Negative) Urine Blood (Negative) Urine Nitrate (Negative) Urine Bilirubin (Negative) Urine Urobilinogen (Negative) Ur Leukocyte Esterase (Negative) Urine Glucose (Negative) 04/20/19 Range/Units 22:54 WBC (3.5-10.8) 10^3/uL RBC (4.18-5.48) 10^6 /uL Hgb (14.0-18.0) g/dL Hct (42-52) % MCV (80-94) fL MCH (27-31) pg MCHC (31-36) g/dL RDW (10-15) % Plt Count (150-450) 10^3/uL MPV (7.4-10.4) fL Neut % (Auto) Lymph % (Auto) Steele % (Auto) Eos % (Auto) Baso % (Auto) Absolute Neuts (auto) Absolute Lymphs (auto) Absolute Monos (auto) Absolute Eos (auto) Absolute Basos (auto) Absolute Nucleated RBC Nucleated RBC % Sodium (135-145) mmol/L Potassium Chloride (101-111) mmol/L Carbon Dioxide (22-32) mmol/L Anion Gap (2-11) mmol/L BUN (6-24) mg/dL Creatinine (0.67-1.17) mg/dL Est GFR ( Amer) (>60) Est GFR (Non-Af Amer) (>60) BUN/Creatinine Ratio (8-20) Glucose (70-100) mg/dL Lactic Acid (0.5-2.0) mmol/L Calcium (8.6-10.3) mg/dL Magnesium Total Bilirubin (0.2-1.0) mg/dL AST ALT (7-52) U/L Alkaline Phosphatase (34-104) U/L Troponin I (<0.04) ng/mL C-Reactive Protein (<8.01) mg/L Total Protein (6.4-8.9) g/dL Albumin (3.2-5.2) g/dL Globulin (2-4) g/dL Albumin/Globulin Ratio (1-3) Urine Color Yellow Urine Appearance Clear Urine pH 5.0 (5-9) Ur Specific Hilger 1.018 (1.010-1.030) Urine Protein Negative (Negative) Urine Ketones Negative (Negative) Urine Blood Negative (Negative) Urine Nitrate Negative (Negative) Urine Bilirubin Negative (Negative) Urine Urobilinogen Negative (Negative) Ur Leukocyte Esterase Negative (Negative) Urine Glucose Negative (Negative) Result Diagrams: 04/20/19 22:17 04/20/19 22:58 Lab Statement: Any lab studies that have been ordered have been reviewed, and results considered in the medical decision making process. - CT brain CT Interpretation Completed By: Radiologist Summary of CT Findings: IMPRESSION: 1. Minimal broad-based posterior protrusions of the lower lumbar spine with no. spinal or foraminal stenosis. 2. No acute fracture or subluxation. Re-Evaluation - Re-Evaluation First Eval Re-Evaluation Time: 23:29 Change: Improved Comment: feeling better Back Pain Course/Dx - Course Course Of Treatment: 34-year-old male presents with back pain for the past couple days. he denies any injury. He states that today he may have passed out and fell onto his back. Family found him on the floor. family states he was slow to respond. No seizure-like activity. He denies any chest pain or shortness of breath. Denies any headache. No nausea vomiting. He states he does not really remember this. No bowel pain. No urinary symptoms. No fevers. No loss of bowel or bladder. No saddle anesthesias. Has decreased sensations in legs at baseline. has been having more difficulty ambulating. was given Percocet a couple days ago for back pain which has not working. On exam tenderness lower back. Lungs clear auscultation. EKG shows sinus rhythm. Laboratory without significant abnormality. Urine shows no infection. CT shows no acute findings. Gave Toradol and Valium and feeling better. We'll prescribe the medrol and Flexeril for home. Told to follow up primary. Patient understands agrees with plan. - Diagnoses Differential Diagnosis/HQI/PQRI: Positive: Fracture, Herniated Disc, Sprain Provider Diagnoses: Back pain Discharge - Sign-Out/Discharge Documenting (check all that apply): Patient Departure Patient Received Moderate/Deep Sedation with Procedure: No - Discharge Plan Condition: Good Disposition: HOME Prescriptions: Cyclobenzaprine TAB* [Flexeril 10 MG TAB*] 10 mg PO TID PRN #21 tab PRN Reason: Pain methylPREDNISolone [Medrol Dosepak 4 MG*] 4 mg PO .SEE JOEY INSTRUCTION #1 packet Patient Education Materials: Back Pain (ED) Forms: *Work Release Referrals: Missael Gunter MD [Primary Care Provider] - Additional Instructions: Follow directions on package for Medrol pack Take muscle relaxers three times a day Use ibuprofen or Tylenol for pain every 6 hours ice/heat area, move as much as possible Follow up with primary within 5 days Return to ED if develop any new or worsening symptoms - Billing Disposition and Condition Condition: GOOD Disposition: Home
[2019-04-20 23:43] VITALS: BP 131/73
[2019-04-20 23:58] LABS: ABS Basophils 0.1 10^3/ul (0-0.2); ABS Eosinophils 0.1 10^3/ul (0-0.6); ABS Lymphocytes 1.7 10^3/ul (1.0-4.8); ABS Monocytes 0.3 10^3/ul (0-0.8); ABS Neutrophils 3.4 10^3/ul (1.5-7.7); Eosinophil % 1.5 %; Lymphocyte % 30.6 %; Nucleated Red Blood Cells % 0.2
== END 2019-04-20 23:42 | disposition home or self-care (01) ==
LOC: ED 21:07
DX: M54.9 Dorsalgia, unspecified (principal); R55 Syncope and collapse; F17.210 Nicotine dependence, cigarettes, uncomplicated; Z88.0 Allergy status to penicillin
CPT/HCPCS: 36415; 72131; 80053; 81003; 83605; 84484; 85025; 86140; 93005; 96372; 99282; A9270-GY; J1885

== ENCOUNTER 2019-09-13 00:06 | Emergency (ER) | payer OTHER ==
--- NOTE | 2019-09-13 01:44 | ED ---
Complex/Multi-Sys Presentation - HPI Summary HPI Summary: Patient is a 34 y/o M presenting to [facility] with complaints of painful abdominal "lumps". Patient claims that he has been dealing with painful lumps at his abdomen for the past few years. He states that he has been evaluated for these lumps in the past but patient has not received a diagnosis for these Sx. Patient reports that around noon 09/11/19 while he was sitting in front of a computer he had one of these lumps at his LLQ "pop". Patient states that he has had pain at this area since. No N/V, difficulty with urination or bowel movements reported. FMHx of cancer is noted. On triage, pain is rated 9/10. Home medications and allergies are reviewed. - History Of Current Complaint Chief Complaint: EDAbdPain Time Seen by Provider: 09/13/19 01:37 Hx Obtained From: Patient Onset/Duration: Lasting Days, Still Present Timing: Constant, Days Severity Currently: Severe Location: Pain At: - LLQ Associated Signs And Symptoms: Positive: Abdominal Pain, Other - negative - difficulty with urination or bowel movements; positive - abdominal "lumps". Negative: Nausea, Vomiting - Allergies/Home Medications Allergies/Adverse Reactions: Allergies Allergy/AdvReac Type Severity Reaction Status Date / Time amoxicillin Allergy Anaphylatic Verified 09/13/19 00:08 Shock aspirin Allergy See Comment Verified 09/13/19 00:08 Penicillins Allergy Anaphylatic Verified 09/13/19 00:08 Shock Home Medications: Home Medications NK [No Home Medications Reported] 09/13/19 [History Confirmed 09/13/19] PMH/Surg Hx/FS Hx/Imm Hx Endocrine/Hematology History: Denies: Hx Diabetes, Hx Thyroid Disease Cardiovascular History: Denies: Hx Hypertension, Hx Pacemaker/ICD Respiratory History: Reports: Hx Asthma Denies: Hx Chronic Obstructive Pulmonary Disease (COPD) GI History: Denies: Hx Ulcer History: Denies: Hx Dialysis Sensory History: Denies: Hx Eye Prosthesis, Hx Deafness, Hx Hearing Aid Opthamlomology History: Denies: Hx Eye Prosthesis Neurological History: Reports: Hx Migraine Psychiatric History: Denies: Hx Panic Disorder - Surgical History Surgery Procedure, Year, and Place: APPENDECTOMY, RIGHT ARM, BILATERAL KNEES, HERNIA REPAIR - Immunization History Date of Tetanus Vaccine: unk Date of Influenza Vaccine: none Infectious Disease History: No Infectious Disease History: Denies: Hx Hepatitis, Hx Human Immunodeficiency Virus (HIV), Traveled Outside the [place] in Last 30 Days - Family History Known Family History: Positive: Cardiac Disease, Diabetes, Other - [place] - Social History Alcohol Use: Rare Hx Substance Use: No Substance Use Type: Reports: None Hx Tobacco Use: Yes Smoking Status (MU): Heavy Every Day Tobacco Smoker Amount Used/How Often: ~1/2 ppd Review of Systems Positive: Abdominal Pain. Negative: Vomiting, Nausea Genitourinary: Other - negative - difficulty with urination or bowel movements Skin: Other - positive - abdominal "lumps" All Other Systems Reviewed And Are Negative: Yes Physical Exam - Summary Physical Exam Summary: Appearance: Well-appearing, Well-nourished, lying in bed comfortably Skin: Warm, dry, no obvious rash; Several small subcutaneous nodules along abdominal wall and volar forearm noted. Nodules are all 1 cm in size and do not feel fluctuant. No surface inflammation. Eyes: sclera anicteric, no conjunctival pallor ENT: mucous membranes moist, pharynx appears normal Neck: Supple, nontender Respiratory: Clear to auscultation, no signs of respiratory distress Cardiovascular: Normal S1, S2. No murmurs. Normal distal pulses in tibial and radial bilaterally. Abdomen: Soft, nontender, normal active bowel sounds present Musculoskeletal: Normal, Strength/ROM Intact Neurological: A&Ox3, awake and alert, mentation is normal, speech is fluent and appropriate Psychiatric: affect is normal, does not appear anxious or depressed Triage Information Reviewed: Yes Vital Signs On Initial Exam: Initial Vitals Temp Pulse Resp BP Pulse Ox 98.0 F 84 18 129/83 98 09/13/19 00:08 09/13/19 00:08 09/13/19 00:08 09/13/19 00:08 09/13/19 00:08 Vital Signs Reviewed: Yes Procedures - Sedation Patient Received Moderate/Deep Sedation with Procedure: No Diagnostics - Vital Signs Vital Signs Temp Pulse Resp BP Pulse Ox 09/13/19 00:08 98.0 F 84 18 129/83 98 - Laboratory Lab Statement: Any lab studies that have been ordered have been reviewed, and results considered in the medical decision making process. - Ultrasound BEDSIDE US Ultrasound Interpretation Completed By: ED Physician Summary of Ultrasound Findings: Bedside US shows nodules are mostly solid with some cystic component. Complex Multi-Symp Course/Dx Course Of Treatment: Patient is a 34 y/o M presenting to [facility] with complaints of painful abdominal "lumps". Patient claims that he has been dealing with painful lumps at his abdomen for the past few years. He states that he has been evaluated for these lumps in the past but patient has not received a diagnosis for these Sx. Patient reports that around noon 09/11/19 while he was sitting in front of a computer he had one of these lumps at his LLQ "pop". Patient states that he has had pain at this area since. No N/V, difficulty with urination or bowel movements reported. FMHx of cancer is noted. On exam, there are several small subcutaneous nodules along abdominal wall and volar forearm noted. Nodules are all 1 cm in size and do not feel fluctuant. No surface inflammation. Bedside US shows nodules are mostly solid with some cystic component. Patient was discharged to home and will follow up with general surgeon. - Diagnoses Provider Diagnoses: Subcutaneous mass Discharge ED - Sign-Out/Discharge Documenting (check all that apply): Patient Departure - discharge - Discharge Plan Condition: Good Disposition: HOME Patient Education Materials: Soft Tissue Mass (ED) Referrals: Kiera Mendez MD [Medical Doctor] - Additional Instructions: I do not believe these lumps are cancerous, but if they are painful you should have them looked at. A general surgeon would likely be the best person to evaluated them further, so call the office on Sunday to make an appt. - Billing Disposition and Condition Condition: GOOD Disposition: Home - Attestation Statements Document Initiated by Mandeep: Yes Documenting Angeliibe: CLARA BERUMEN Provider For Whom Mandeep is Documenting (Include Credential): KYRIE VAZQUEZ MD Scribe Attestation: ICLARA, scribed for KYRIE VAZQUEZ MD on 09/13/19 at 1904. Scribe Documentation Reviewed: Yes Provider Attestation: The documentation as recorded by the CLARA cota accurately reflects the service I personally performed and the decisions made by me, KYRIE VAZQUEZ MD Status of Scrnash Document: Viewed
[2019-09-13 02:07] VITALS: BP 106/76
== END 2019-09-13 02:07 | disposition home or self-care (01) ==
LOC: ED 00:06
DX: R22.2 Localized swelling, mass and lump, trunk (principal); F17.200 Nicotine dependence, unspecified, uncomplicated; Z90.89 Acquired absence of other organs; Z88.0 Allergy status to penicillin; Z88.8 Allergy status to other drugs, medicaments and biological substances
CPT/HCPCS: 99282

== ENCOUNTER 2019-10-10 22:30 | Emergency (ER) | payer OTHER ==
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
[2019-10-10 22:59] LABS: ABS Basophils 0.1 10^3/ul (0-0.2); ABS Eosinophils 0.1 10^3/ul (0-0.6); ABS Lymphocytes 1.6 10^3/ul (1.0-4.8); ABS Monocytes 0.4 10^3/ul (0-0.8); ABS Neutrophils 4.1 10^3/ul (1.5-7.7); Eosinophil % 0.9 %; Hematocrit 44 % (42-52); Hemoglobin 15.5 g/dL (14.0-18.0); Mean Corpuscular HGB Conc 35 g/dL (31-36); Mean Corpuscular Hemoglobin 29 pg (27-31); Mean Corpuscular Volume 82 fL (80-94); Mean Platelet Volume 9.5 fL (7.4-10.4); Platelet Count 101 10^3/uL (150-450); Red Blood Count 5.38 10^6 /uL (4.18-5.48); Red Cell Distribution Width 13 % (10-15); White Blood Count 6.3 10^3/uL (3.5-10.8)
[2019-10-10 23:18] LABS: ALT 15 U/L (7-52); AST 18 U/L (13-39); Albumin 4.3 g/dL (3.2-5.2); Albumin/Globulin Ratio 1.9 (1-3); Alkaline Phosphatase 40 U/L (34-104); Anion Gap 7 mmol/L (2-11); BUN/Creatinine Ratio 6.9 (8-20); Blood Urea Nitrogen 9 mg/dL (6-24); CO2 Carbon Dioxide 25 mmol/L (22-32); Calcium 9.4 mg/dL (8.6-10.3); Chloride 107 mmol/L (101-111); EGFR African American 75.3 (>60); EGFR Non-African American 62.3 (>60); Globulin 2.3 g/dL (2-4); Glucose 107 mg/dL (70-100); Potassium 4.1 mmol/L (3.5-5.0); Sodium 139 mmol/L (135-145); Total Protein 6.6 g/dL (6.4-8.9)
[2019-10-10 23:23] LABS: Alcohol < 10 mg/dL (<10)
[2019-10-11] MEDS ORDERED: Acetaminophen TAB* 325 MG PO ONE (00:35)
[2019-10-11 02:08] LABS: Urine Appearance Clear; Urine Bilirubin Negative (Negative); Urine Blood Negative (Negative); Urine Color Yellow; Urine Glucose Negative (Negative); Urine Ketones Negative (Negative); Urine Nitrite Negative (Negative); Urine Protein Negative (Negative); Urine Specific Gravity 1.017 (1.010-1.030); Urine Urobilinogen Negative (Negative)
[2019-10-11 02:30] LABS: Urine Benzodiazepine Screen None Detected (None Detect); Urine Opiates Screen None Detected (None Detect)
[2019-10-11 03:35] VITALS: BP 127/65
== END 2019-10-11 03:25 | disposition home or self-care (01) ==
LOC: ED 22:30
DX: S06.0X9A Concussion with loss of consciousness of unspecified duration, initial encounter (principal); S16.1XXA Strain of muscle, fascia and tendon at neck level, initial encounter; Y04.2XXA Assault by strike against or bumped into by another person, initial encounter; Y92.003 Bedroom of unspecified non-institutional (private) residence as the place of occurrence of the external cause; J45.909 Unspecified asthma, uncomplicated; Z90.89 Acquired absence of other organs; F17.200 Nicotine dependence, unspecified, uncomplicated; Z88.0 Allergy status to penicillin; Z88.8 Allergy status to other drugs, medicaments and biological substances
CPT/HCPCS: 36415; 70450; 71046; 72125; 80053; 80307; 80320; 81003; 83605; 85025; 99284; A9270-GY; G0480

== ENCOUNTER 2019-12-24 06:50 | Day surgery (SDC) | payer OTHER ==
[~2019-12-24 06:50] MED LIST: Buffered Lidocaine 1% SYRIN* 1 ML/SYRINGE INTRADERM ONE; Famotidine IV* 10 MG/ML 2 ML (20 mg) IV ONE; Famotidine IV* 10 MG/ML 2 ML (20 mg) ONE; Lactated Ringers 1000 ML Bag* 1,000 ML IV SCH
[2019-12-24] MEDS ORDERED: Propofol* 10 MG/ML 20 ML BTL ONE (08:03)
[2019-12-24] MEDS ORDERED: Ketorolac INJ* 30 MG/ML 1 ML VIAL ONE (08:03)
[2019-12-24] MEDS ORDERED: Lidocaine 2% PF * 5 ML VIAL ONE (08:03)
[2019-12-24] MEDS ORDERED: Dexamethasone IV* 4 MG/ML 1 ML (4 MG) ONE (08:03)
[2019-12-24] MEDS ORDERED: Ondansetron INJ* 2 MG/ML VIAL ONE (08:03)
[2019-12-24] MEDS ORDERED: Midazolam* 1 MG/ML 10 ML VIAL (10 MG) ONE (08:04)
[2019-12-24] MEDS ORDERED: fentaNYL* 50 MCG/ML 2 ML VIAL (100 MCG VIAL) ONE ×2 (08:04→09:12)
[2019-12-24] MEDS ORDERED: KETAMINE HCL* 50 MG/ML 10 ML VIAL ONE (08:04)
[2019-12-24] MEDS ORDERED: Lidocaine 1% MPF ** 5 ML VIAL ONE (08:51)
[2019-12-24] MEDS ORDERED: Bupivacaine 0.25% SDV* 30 ML ONE (08:51)
[2019-12-24] MEDS ORDERED: Lidocaine 1% INJ* 10 MG/ML 30 ML SDV ONE (08:52)
[2019-12-24] MEDS ORDERED: Cisatracurium* 2 MG/ML MDV 5 ML ONE (08:54)
[2019-12-24] MEDS ORDERED: Naloxone* 0.4 MG/ML 1 ML VIAL IV PRN (09:29)
[2019-12-24] MEDS ORDERED: fentaNYL* 50 MCG/ML 2 ML VIAL (100 MCG VIAL) IV PRN (09:29)
[2019-12-24] MEDS ORDERED: oxyCODONE/Acetamin 5/325 MG* TAB PO PRN (09:29)
[2019-12-24] MEDS ORDERED: Ondansetron INJ* 2 MG/ML VIAL IV PRN (09:29)
[2019-12-24] MEDS ORDERED: Glycopyrrolate IV* 0.2 MG/ML 1 ML VIAL ONE (09:43)
--- NOTE | 2019-12-24 09:46 | OP ---
Operative Report - Blank - Operative Report Date of Operation: 12/24/19 Note: Pre-OP Diagnoses: flank and abdominal lipomas Post-op Diagnosis: same Procedure: removal of flank and abdominal lipomas Surgeon: Ariana Asst: none Anesthesia: GA EBL: minimal IVF: crystalloid Specimen: lipomas Drains: none
[2019-12-24] MEDS ORDERED: oxyCODONE/Acetamin 5/325 MG* TAB ONE (10:45)
[2019-12-24 11:40] VITALS: BP 113/69
--- NOTE | 2019-12-24 22:39 | OP ---
CC: [facility]; Primary Care Doctor * DATE OF OPERATION: 12/24/19 - [facility] DATE OF : 83 SURGEON: Jordan Lane MD COST ACCOUNTING CLERK: None. ANESTHESIOLOGIST: Dr. Xavier. ANESTHESIA: General. PRE-OP DIAGNOSIS: Right flank and abdominal lipomas. POST-OP DIAGNOSIS: Right flank and abdominal lipomas. OPERATIVE PROCEDURE: Removal of right flank and abdominal lipomas. ESTIMATED BLOOD LOSS: Minimal. FLUIDS: Minimal crystalloid fluid given. SPECIMENS: 3 lipomas. DESCRIPTION OF PROCEDURE: The patient was identified in the preoperative area. We marked the areas where the lipomas were symptomatic. The patient was then taken to the operating room, placed on the operating room table in the supine position. General anesthesia was induced. Sequential devices were placed on bilateral lower extremities and the patient was placed in a left lateral decubitus position. The abdominal hair was clipped and the patient's right flank and abdomen were prepped and draped in standard surgical fashion and time- out was performed. A flank incision was made, deepened down through the skin and subcutaneous tissue and lipoma posteriorly was identified. This was both bluntly and sharply removed and passed off as specimen, was approximately 2.5 cm. Medially or more anteriorly, through this same incision, a second lipoma was removed in a similar fashion. The wound was then irrigated and reapproximated with 3-0 Vicryl followed by 4-0 Monocryl subcuticular sutures. Attention was then turned towards the periumbilical lesion. An incision was made. This was deepened down to the lipoma which was removed in its entirety. It was also about 2.5 cm, leaving two lipomas that were 2.5 cm, all benign appearing, and one lipoma that was 1.5 cm. The wound was similarly closed and both incisions were reapproximated with Steri-Strips and sterile dressing. The patient tolerated the procedure well. [id number]/[facility] #: [id number] [facility]
== END 2019-12-24 11:40 | disposition home or self-care (01) ==
LOC: OR 06:50
PROVIDERS: ATTEND Surgery
DX: D17.1 Benign lipomatous neoplasm of skin and subcutaneous tissue of trunk (principal); F17.210 Nicotine dependence, cigarettes, uncomplicated; J45.909 Unspecified asthma, uncomplicated; Z88.0 Allergy status to penicillin; Z88.6 Allergy status to analgesic agent; Z91.040 Latex allergy status
CPT/HCPCS: 88304; A9270-GY; J1100; J1885; J2250; J2405; J2704; J3010; J3490